=== PATIENT | male | born 1965 | race Two or more races ===

== ENCOUNTER 2022-03-23 13:52 | Emergency (ER) | payer OTHER ==
[~2022-03-23] VITALS: Ht 170.2 cm; Wt 72.0 kg
[2022-03-23 16:15] VITALS: BP 146/86
[2022-03-23] MEDS ORDERED: PROM1SOL4 PO (16:24)
[2022-03-23] MEDS ORDERED: ESCI10TA PO (16:24)
[2022-03-23] MEDS ORDERED: CEPH500C PO (16:24)
== END 2022-03-23 16:29 | disposition home or self-care (01) ==
LOC: ER 13:52
DX: J20.9 Acute bronchitis, unspecified (principal); F32.9 Major depressive disorder, single episode, unspecified; F12.90 Cannabis use, unspecified, uncomplicated; Z76.0 Encounter for issue of repeat prescription; Z79.899 Other long term (current) drug therapy